=== PATIENT | female | born 1960 | race Caucasian/White ===

== ENCOUNTER → 2019-07-10 12:19 | Outpatient (CLI) | payer OTHER, SELFPAY ==
--- NOTE | ~2019-07-10 | MR_ITS ---
EXAMINATION: MR shoulder LT wo con DATE: 07/10/2019 12:58 INDICATION: Left shoulder pain TECHNIQUE: Magnetic resonance imaging (MRI) of the left shoulder was performed without intravenous co ntrast. Sequences included axial PD-weighted FS FSE, coronal oblique PD-weighted FS FSE, coronal obli que T2-weighted FS FSE, sagittal PD-weighted FS FSE, and sagittal T1-weighted SE. COMPARISON: Left shoulder radiographs dated 06/28/2019 FINDINGS: Coracoacromial arch: The acromion undersurface is curved in morphology with anterior hook (type III) with small anterior s ubacromial spur at the acromial attachment of the normal coracoacromial ligament. Moderate acromiocla vicular osteoarthritis with small inferiorly directed osteophytes. Rotator cuff: Severe supraspinatus tendinopathy. There is attenuation of the distal supraspinatus tendon with lax a ppearance to the articular sided fibers of the tendon medial to a thickened rotator cuff cable which can be seen with U-shaped configuration curving medially around the apex of the humeral head. Althoug h a well-defined fluid signal intensity tear defect is not appreciated likely due to to severe tendin opathy and fraying of the tendon, the U-shaped cable and likely retracted articular sided tear margin can be seen on axial series 4, image 6 and measures approximately 1.7 cm AP. The tear likely involve s up to one half of the tendon thickness. There is prominent cystic change along the underlying super ior facet footplate of the greater tuberosity. Mild infraspinatus tendinopathy without discrete tear. Teres minor and subscapularis tendons are normal. Normal rotator cuff muscle bulk and signal. Biceps tendon, glenoid labrum and glenohumeral cartilage: Long head of the biceps tendon is normal. Glenoid labrum is normal. Glenohumeral cartilage is normal. Fluid: Small glenohumeral joint effusion with proportional extension of a small amount of fluid along the lo ng head biceps tendon sheath. No loose osteochondral bodies. Mild increased fluid signal along the gregory bacromial/subdeltoid bursa consistent with mild bursitis. Bones: Alignment is normal. No fracture or pathologic marrow replacing process. IMPRESSION: 1. Severe supraspinatus tendinopathy with likely poorly defined mild partial-thickness articular side d tear of the distal tendon. 2. Moderate acromioclavicular osteoarthritis with mild underlying subacromial/subdeltoid bursitis. 3. Small glenohumeral joint effusion. Reviewed, dictated and finalized at location A. IMPRESSION: 1. Severe supraspinatus tendinopathy with likely poorly defined mild partial-th ickness articular sided tear of the distal tendon. 2. Moderate acromioclavicular osteoarthritis with mild underlying subacromial/s ubdeltoid bursitis. 3. Small glenohumeral joint effusion.
== END ==
PROVIDERS: Visit Provider Orthopaedic Surgery
DX: M19.012 Primary osteoarthritis, left shoulder (principal); M25.412 Effusion, left shoulder
CPT/HCPCS: 73221

== ENCOUNTER 2020-09-29 13:38 | Outpatient (CLI) | payer OTHER, SELFPAY ==
--- NOTE | ~2020-09-29 | US_ITS ---
EXAMINATION: US carotid duplex BI DATE: 09/29/2020 15:24 INDICATION: Transient visual loss, unspecified eye. TECHNIQUE: Grayscale, color Doppler, and pulsed Doppler images of the cervical carotid arteries were obtained. The degree of vessel stenosis is placed in one of the following categories: normal, <50%, 5 0-69%, >=70% but less than near-occlusion, near-occlusion, or total occlusion. Note that percent sten osis relative to normal distal artery lumen diameter is indirectly measured from velocity measurement s as described by Niraj, et al. Radiology 2003; [id number]:[id number]. COMPARISON: None. FINDINGS: RIGHT: The right common carotid artery (CCA) peak systolic velocity (PSV) is 106 cm/s. The right internal ca rotid artery (ICA) PSV is 71 cm/s. The right ICA end-diastolic velocity (EDV) is 24 cm/s. The right I CA/CCA PSV ratio is 0.7. Grayscale and color Doppler images yield an estimate of <50% diameter reduct ion from plaque in the ICA. There is antegrade flow in the right vertebral artery. LEFT: The left CCA PSV is 114 cm/s. The left ICA PSV is 82 cm/s. The left ICA EDV is 38 cm/s. The left ICA/ CCA PSV ratio is 0.7. Grayscale and color Doppler images yield an estimate of <50% diameter reduction from plaque in the ICA. There is antegrade flow in the left vertebral artery. IMPRESSION: 1. <50% stenosis in the right internal carotid artery. 2. <50% stenosis in the left internal carotid artery. Reviewed, dictated and finalized at location A.
== END 2020-09-29 13:39 | disposition home or self-care (01) ==
PROVIDERS: PCP Family Medicine; Visit Provider Family Medicine
DX: H53.129 Transient visual loss, unspecified eye (principal); I65.23 Occlusion and stenosis of bilateral carotid arteries
CPT/HCPCS: 93880